=== PATIENT | female | born 1980 | race Two or more races ===

== ENCOUNTER 2021-10-07 19:55 | Emergency (ER) | payer OTHER ==
[~2021-10-07] VITALS: Ht 170.2 cm; Wt 92.5 kg
[2021-10-07] MEDS ORDERED: SYNTHROID175 MCG (20:07)
[2021-10-07] MEDS ORDERED: GEMFIBROZIL600 MG (20:09)
[2021-10-07] MEDS ORDERED: ZYRTEC10 M3 (20:10)
[2021-10-07] MEDS ORDERED: PEPCID AC20 MG PO (20:10)
== END 2021-10-07 23:44 | disposition home or self-care (01) ==
LOC: ER 19:55
DX: B34.9 Viral infection, unspecified (principal); Z88.6 Allergy status to analgesic agent; Z20.822 Contact with and (suspected) exposure to COVID-19